=== PATIENT | male | born 1950 | race Caucasian/White ===

== ENCOUNTER → 2018-05-22 | Outpatient (REF) ==
[~2018-05-22] MED LIST: BUPROPION HCL150 MG PO; CATAPRES-T0.3 MG/24 PO; HCTZ PO; KLOR-CON 1010 MEQ PO; LISINOPRIL20 MG PO; TERAZOSIN HCL PO; TOPROL XL25 MG PO; ZOCOR80 MG PO
== END ==
LOC: ZLAB.WCH 08:32
DX: Z01.89 Encounter for other specified special examinations (principal)

== ENCOUNTER → 2020-05-30 | Outpatient (REF) | LOC: ZLAB.WCH 09:23 | DX: Z01.89 Encounter for other specified special examinations (principal) ==

== ENCOUNTER → 2021-02-23 | Outpatient (CLI) | payer MEDICARE | LOC: ZCOL.LAB 16:13 | DX: E13.621 Other specified diabetes mellitus with foot ulcer (principal) ==

== ENCOUNTER 2022-08-18 05:24 | Inpatient (IN) | payer MEDICARE ==
[2022-08-18] VITALS (484 sets, daily range): BP systolic 114–189; BP diastolic 74–125; PULSE 72–86; TEMP 98.3; O2SAT 75–97
[~2022-08-18] VITALS: Ht 172.7 cm; Wt 101.0 kg
[~2022-08-18 05:24] MED LIST changes: +ALDACTONE 25MG25 M1 PO; +ATARAX 25MG25 MG/TAB PO; +BREZTRI AEROS10.7 GM IH; +DEMADEX 20MG20 M1 PO; +ELIQUIS 5MG PO; +HYTRIN 5MG C5 MG/CAP PO; +IMDUR 60MG60 MG/TAB PO; +JARDIANCE10; +K-DUR20 MEQ PO; +LASIX 40MG TABL40 MG PO; +LIPITOR 40MG TA40 MG PO; +NYSTATIN100000 U/1 TOP; +PLAVIX 75MG TAB75 MG PO; +PREDNISONE20 MG PO; +PROAIR HFA0.09 MG/AC IH; +TESSALON P100 MG/CAP PO; +TOPROL XL100 MG PO; +VITAMIN D31000 I1 PO; +ZOLOFT 100MG100 MG PO; +ZYLOPRIM 100MG100 MG PO
--- NOTE | 2022-08-18 09:36 | NUR ---
Arrived to the unit via EMS. Able to self-transfer from cot to ICU bed independently. Alert and oriented and in no distress. Denies any pain and reports breathing is "much better" than yesterday. Curernlty 90-93% on RA. EMT stating that patient has been refusing to wear o2 on ambulence and at the other facilty. Will leave room air if o2 remains greater than 90%. Attached to all monitors and call light left within reach. Hospitalist notified of patients arrival.
--- NOTE | 2022-08-18 10:30 | NUR ---
Hospitalist notified of elevated bp. Kathrine on nitro at 60 mcg/min. Hospitalist to come see patient for admission orders.
[2022-08-18 10:58] LABS: HEMATOCRIT 39.8 % (42.0-52.0); HEMOGLOBIN 13.6 g/dl (13.5-18.0); MEAN CELL VOLUME 94 fl (80.0-100.0); MEAN CORPUSCULAR HEMOGLOBIN 32 pg (27-31); MEAN CORPUSCULAR HGB CONC 34 g/dl (33.0-37.0); MEAN PLATELET VOLUME 9.4 fl (7.4-10.4); PLATELET COUNT 225 K/mm3 (130-400); RED BLOOD COUNT 4.24 M/mm3 (4.20-5.60); REDCELL DISTRIBUTION WIDTH-CV 15.1 % (11.5-14.5)
[2022-08-18 11:11] LABS: ANISOCYTOSIS 1+; BAND 2 % (0-10); EOSINOPHIL 3 % (0-4); LYMPHOCYTE 4 % (20.0-51.0); NEUTROPHILS 89 % (42.0-75.2); PLATELET ESTIMATE NORMAL (NORMAL)
[2022-08-18 11:12] LABS: ALBUMIN 3.8 gm/dL (3.4-4.8); BILIRUBIN,TOTAL 2.5 mg/dL (0.2-1.2); CALCIUM 9.6 mg/dL (8.4-10.2); CREATININE, serum 1.28 mg/dL (0.72-1.25); POTASSIUM 4.3 mmol/L (3.5-4.5); TOTAL PROTEIN 6.6 gm/dL (6.2-8.1)
[2022-08-18 11:20] LABS: TROPONIN-I 0.045 ng/mL (0.00-0.033)
--- NOTE | 2022-08-18 15:10 | NUR ---
BP continues to be elevated despite re-starting oral BP medications and increasing nitro. Hospitalist notified; new orders received see EMAR.
--- NOTE | 2022-08-18 18:35 | NUR ---
Notified hospitalist that BP still running 170's systolic. Will administer one time dose of hydralazine and monitor for effectiveness.
[2022-08-19] VITALS (283 sets, daily range): BP systolic 136–161; BP diastolic 75–99; PULSE 59–75; TEMP 97.4–98.4; O2SAT 84–99
[2022-08-19 04:13] LABS: HEMATOCRIT 37.7 % (42.0-52.0); MEAN CELL VOLUME 92 fl (80.0-100.0); MEAN CORPUSCULAR HEMOGLOBIN 32 pg (27-31); MEAN CORPUSCULAR HGB CONC 35 g/dl (33.0-37.0); MEAN PLATELET VOLUME 9.3 fl (7.4-10.4); PLATELET COUNT 204 K/mm3 (130-400); RED BLOOD COUNT 4.09 M/mm3 (4.20-5.60); REDCELL DISTRIBUTION WIDTH-CV 14.7 % (11.5-14.5)
[2022-08-19 04:25] LABS: CALCIUM 8.8 mg/dL (8.4-10.2); CREATININE, serum 1.17 mg/dL (0.72-1.25); POTASSIUM 3.6 mmol/L (3.5-4.5)
[2022-08-19 04:34] LABS: BAND 1 % (0-10); LYMPHOCYTE 7 % (20.0-51.0); METAMYELOCYTE 1 % (0-0); NEUTROPHILS 89 % (42.0-75.2); PLATELET ESTIMATE NORMAL (NORMAL)
[2022-08-19 04:35] LABS: OVALOCYTES 1+
--- NOTE | 2022-08-19 09:39 | NUR ---
IV nitroglycerine discontinued per hospitalist orders at this time.
--- NOTE | 2022-08-19 10:00 | NUR ---
Assisted to set up breakfast tray. Ate almost 100% of meal. Denies any needs or concerns at this time. Bed alarm activated and call light left within reach.
[2022-08-19] MEDS ORDERED: ENTRESTO 97 MG1 EACH PO (13:38)
--- NOTE | 2022-08-19 16:13 | NUR ---
Pt transferred from ICU to medical unit. Answers most questions appropriately. Able to transfer from wheelchair to bed with x1 assist. Eating lunch comfortably in bed. No complaints of pain, nausea, or SOB. Bed in lowest position with call light within reach.
--- NOTE | 2022-08-19 20:30 | NUR ---
Initial shift assessment done- alert/confused about certain things-states he is 89 yrs old and very proud of this - but he is 72 yrs old. Very cooperative and pleasant- Tele on, paced, o2 at 1L/nc sats 95%. Bed alarm on-
[2022-08-20 01:01] VITALS: BP 156/72; PULSE 72; TEMP 97.7
[2022-08-20 03:25] VITALS: BP 156/85; PULSE 65; TEMP 97.5
--- NOTE | 2022-08-20 05:45 | NUR ---
Quiet night- B/P 156/85, o2 sats 91-92% on 1L/nc, did sleep for just a short time this morning-- was incontinent of urine just once , otherwise did use the urinal- bed was changed and pt got up and sat on the couch- fairly steady on feet. Tele on -paced.
[2022-08-20 07:33] VITALS: BP 151/80; PULSE 60; TEMP 97.7
--- NOTE | 2022-08-20 08:00 | NUR ---
Patient is resting in bed, alert and oriented. 2l o2 NC. Telemetry in place, paced. Assessment completed, meds provided. NO other needs at this time, call light within reach.
[2022-08-20] MEDS ORDERED: ASPIRIN 81M81 MG/TA2 PO (08:41)
[2022-08-20] MEDS ORDERED: COREG 3.123.125 MG/T PO (08:41)
[2022-08-20] MEDS ORDERED: NORVASC 5MG5 MG/TAB PO (08:41)
[2022-08-20] MEDS ORDERED: MEDROL 4MG DOSPA4 MG PO (08:46)
[2022-08-20] MEDS ORDERED: OXYGEN NASAL.CANN (09:25)
[2022-08-20 11:16] VITALS: BP 118/69; PULSE 69; TEMP 97.4
[2022-08-20 15:17] VITALS: BP 134/79; PULSE 61; TEMP 97.4
--- NOTE | 2022-08-20 16:06 | NUR ---
Top Dyeing Machine Loader attended clinical rounds with the team and patient to discharge home today. SW met with patient to discuss discharge planning. Patient lives alone in [place], [place] and sees Dr. Mosqueda for primary care. Patient reports he has a walker at home but does not need it. Patient will need home oxygen set up for discharge today and he would like to use [place]. Patient reports he is normally independent with [facility] and also has weekly visits from [facility]. Patient would like to continue services with them at time of discharge. Patient advised he has designated his sister, Adrianne (ph#[phone]) as DPOA-HC and completed the form at [facility]. Patient stated his sister will be here this afternoon to bring in his home medication list and take him home. SW contacted patient's sister, Adrianne and reviewed discharge plan. SW then contacted [facility] and faxed referral with orders. Patient's portable system was delivered to patient's room. SW also contacted [facility] and faxed referral. SW will faxed orders once finalized. Hospitalist will not finalize the medications until patient's sister brings in home med list. Discharge Plan: Home with [facility] and [facility] oxygen
[2022-08-20] MEDS ORDERED: ATARAX 25MG25 MG/TAB PO (18:29)
[2022-08-20] MEDS ORDERED: IPRATROPIUM BROM3 M1 IH (18:29)
[2022-08-20] MEDS ORDERED: ZYLOPRIM 100MG100 MG PO (18:30)
[2022-08-20] MEDS ORDERED: NITROSTAT0.4 MG/TAB SL (18:32)
[2022-08-20] MEDS ORDERED: K-TAB20 PO (18:33)
[2022-08-20] MEDS ORDERED: DEMADEX 20MG20 M1 PO (18:34)
--- NOTE | 2022-08-20 19:52 | NUR ---
PATIENT AND SISTER were provided with discharge information, all questions answered. IV and telemetry discontinued.
--- NOTE | 2022-08-21 08:38 | NUR ---
Community Outreach Director contacted [facility] and faxed discharge orders.
== END 2022-08-20 19:53 | disposition home health service (06) | DRG 280 ==
LOC: IMCU 05:24 → ICU 09:37 → MEDICAL 08-19 15:06
PROVIDERS: Student in an Organized Health Care Education/Training Program; ADMIT Internal Medicine
DX: I11.0 Hypertensive heart disease with heart failure (principal); I50.23 Acute on chronic systolic (congestive) heart failure; I21.A1 Myocardial infarction type 2; J96.01 Acute respiratory failure with hypoxia; J44.1 Chronic obstructive pulmonary disease with (acute) exacerbation; I16.1 Hypertensive emergency; M10.9 Gout, unspecified; F17.210 Nicotine dependence, cigarettes, uncomplicated; F32.A Depression, unspecified; I08.1 Rheumatic disorders of both mitral and tricuspid valves; E78.5 Hyperlipidemia, unspecified; Z95.0 Presence of cardiac pacemaker; Z79.01 Long term (current) use of anticoagulants
CPT/HCPCS: A9270; J0360; J2920; J2930